=== PATIENT | male | born 1955 | race Caucasian/White ===

== ENCOUNTER 2019-05-23 13:08 | Emergency (ER) | payer BC ==
[2019-05-23 13:13] VITALS: TEMP 97.9
--- NOTE | 2019-05-23 13:29 | ED ---
Fall HPI - General Chief Complaint: Fall Stated Complaint: Fall Time Seen by Provider: 05/23/19 13:18 Source: patient, RN notes reviewed Mode of arrival: wheelchair Limitations: physical limitation - History of Present Illness Initial Comments: This a 63-year-old male presents emergency Department chief complaint of left shoulder left hip pain. Patient states that on he was standing on a tree stump and states that he fell off which is approximately 4 feet. Patient states that the pain is not improved he states his pain just below his left shoulder and pain in his left buttocks, pelvic region. Denies any bowel bladder incontinence or retention. Denies any back pain denies any hemorrhaging a loss conscious. Patient states that his lungs range of motion of his left shoulder is right-hand dominant. Patient did take Tylenol prior arrival states he does not want any further pain medication at this time. - Related Data Allergies Allergy/AdvReac Type Severity Reaction Status Date / Time No Known Allergies Allergy Verified 05/23/19 13:13 Review of Systems ROS Statement: Those systems with pertinent positive or pertinent negative responses have been documented in the HPI. ROS Other: All systems not noted in ROS Statement are negative. Past Medical History Past Medical History: Coronary Artery Disease (CAD) History of Any Multi-Drug Resistant Organisms: None Reported Past Surgical History: Hernia Repair Past Psychological History: No Psychological Hx Reported Smoking Status: Never smoker Past Alcohol Use History: None Reported Past Drug Use History: None Reported General Exam General appearance: alert, in no apparent distress Head exam: Present: atraumatic, normocephalic, normal inspection Eye exam: Present: normal appearance, PERRL, EOMI. Absent: scleral icterus, conjunctival injection, periorbital swelling ENT exam: Present: normal exam, normal oropharynx, mucous membranes moist Neck exam: Present: normal inspection, full ROM. Absent: tenderness, meningismus, lymphadenopathy Respiratory exam: Present: normal lung sounds bilaterally. Absent: respiratory distress, wheezes, rales, rhonchi, stridor, chest wall tenderness Cardiovascular Exam: Present: regular rate, normal rhythm, normal heart sounds. Absent: systolic murmur, diastolic murmur, rubs, gallop, clicks Extremities exam: Present: other (Left hip pain with range of motion neurovascular intact left leg equal pedal pulses, tenderness the lateral posterior aspect left shoulder limited range of motion secondary to pain there is no particular tenderness there is tenderness in the proximal humeral region distal humerus nontender remaining extremity exam within normal limits) Back exam: Present: full ROM. Absent: tenderness, paraspinal tenderness, vertebral tenderness Neurological exam: Present: alert, oriented X3, CN II-XII intact Skin exam: Present: warm, dry, intact, normal color. Absent: rash Course Vital Signs 05/23/19 05/23/19 13:10 15:05 Temperature 97.9 F Pulse Rate 84 68 Respiratory 20 18 Rate Blood Pressure 133/79 124/74 O2 Sat by Pulse 99 97 Oximetry Procedures - Orthopedic Splinting/Casting Injury #1 Side: left Upper Extremity Injury Location: long arm, elbow Upper Extremity Immobilizer: sling/shoulder immobilizer, posterior splint, synthetic pre-padded splint Medical Decision Making - Medical Decision Making 63-year-old male presents emergency Department chief complaint of fall, left shoulder, left hip x-rays were obtained of the pelvis and shoulder initially which I felt there may have been a fracture of the pelvis CT was obtained which shows evidence of pubic rami fracture no hip fracture. Patient updated on results and then complaint of left elbow pain x-ray shows possible chip fracture of the radial head. Patient was splinted and will follow-up with orthopedics and return parameters were discussed. Disposition Clinical Impression: Fall, Fracture of left inferior pubic ramus, Left radial head fracture Disposition: HOME SELF-CARE Condition: Stable Instructions (If sedation given, give patient instructions): Arm Fracture in Adults (ED), Pelvic Fracture (ED) Additional Instructions: Please return to the Emergency Department if symptoms worsen or any other concerns. Is patient prescribed a controlled substance at d/c from ED?: No Referrals: Moisés Louise MD [Primary Care Provider] - 1-2 days Merry Cox DO [Doctor of Osteopathic Medicine] - 1-2 days Time of Disposition: 15:23
--- NOTE | 2019-05-23 13:47 | XR ---
EXAMINATION TYPE: XR shoulder complete LT , 3 VIEWS DATE OF EXAM ORDERED: 05/23/2019 HISTORY: fall, pain, trauma. COMPARISON: None. FINDINGS: There are mild hypertrophic changes present in the left AC joint. No fracture or dislocati on is seen. IMPRESSION: 1. NO ACUTE OSSEOUS LESION. 2. MILD DEGENERATIVE CHANGE, LEFT AC JOINT.
--- NOTE | 2019-05-23 13:49 | XR ---
EXAMINATION TYPE: XR Hip LT and AP Pelvis , 3 VIEWS DATE OF EXAM ORDERED: 05/23/2019 HISTORY: fall, pain, trauma. COMPARISON: None. FINDINGS: Bony structures about the pelvis are normal. No fracture or dislocation is seen. There are phleboliths within the pelvis. Both hips are nonspherical. There are "bumps" on the femoral necks. IMPRESSION: 1. NO ACUTE OSSEOUS LESION. 2. PLEASE CORRELATE CLINICALLY FOR FEMOROACETABULAR IMPINGEMENT SYNDROME.
--- NOTE | 2019-05-23 14:21 | CT ---
EXAMINATION TYPE: CT hip LT wo con DATE OF EXAM: 05/23/2019 COMPARISON: None HISTORY: unable to bear weight post fall CT DLP: 720.2 mGycm Automated exposure control for dose reduction was used. FINDINGS: Multiple axial sections were obtained from the upper ileum to the mid shaft of the femur with no cont rast. The acetabulum is intact. There is minor acetabular spurring. Hip joint space is fairly normal. I see no definite femoral neck fracture. Proximal femur is intact. Left sacroiliac joint is intact. There is no evidence of a soft tissue mass. IMPRESSION: MILD DEGENERATIVE SPURRING AT THE HIP JOINT. NO FRACTURE SEEN.
[2019-05-23 15:06] VITALS: BP 124/74; PULSE 68; RESP 18
--- NOTE | 2019-05-23 15:07 | XR ---
EXAMINATION TYPE: XR elbow complete LT DATE OF EXAM: 05/23/2019 COMPARISON: NONE HISTORY: Elbow pain TECHNIQUE: 3 views FINDINGS: There is some spurring on the olecranon process of the ulna. There is posterior fat pad sig n. There is anterior sail sign. There is a intra-articular 8 mm chip fracture of the lateral aspect o f the radial head. Proximal ulna is intact. IMPRESSION: Radial head chip fracture. Elbow joint effusion.
[2019-05-23] MEDS ORDERED: ACET/COD 300 MG/30 MG STARTER PACK 6 TAB BTL PO STA (15:41)
== END 2019-05-23 16:07 | disposition home or self-care (01) ==
LOC: EC 13:08
DX: S32.592A Other specified fracture of left pubis, initial encounter for closed fracture (principal); S52.122A Displaced fracture of head of left radius, initial encounter for closed fracture; I25.10 Atherosclerotic heart disease of native coronary artery without angina pectoris; W14.XXXA Fall from tree, initial encounter; Y93.89 Activity, other specified
CPT/HCPCS: 29105; 73502; 99284

== ENCOUNTER → 2019-06-05 | Outpatient (CLI) | payer BC ==
--- NOTE | 2019-06-05 17:16 | CT ---
EXAMINATION TYPE: CT elbow LT wo con DATE OF EXAM: 06/05/2019 COMPARISON: Plain films 05/23/2019 HISTORY: Radial fracture. CT DLP: 204 mGycm Automated exposure control for dose reduction was used. Axial images 3 mm thick sections. Reconstructed images in orthogonal planes. FINDINGS: There is a radial head fracture with intra-articular extension. No dislocation is evident. Significan t joint effusion is not appreciated at this time. No additional fractures are evident. IMPRESSION: RADIAL HEAD FRACTURE WITH INTRA-ARTICULAR EXTENSION. NO FREE FRAGMENTS ARE IDENTIFIED.
== END ==
LOC: RADCTMAIN 12:24
PROVIDERS: ATTEND Orthopaedic Surgery Orthopaedic Surgery of the Spine
DX: S52.125A Nondisplaced fracture of head of left radius, initial encounter for closed fracture (principal); M54.5 Low back pain; X58.XXXA Exposure to other specified factors, initial encounter

== ENCOUNTER → 2019-06-26 | Outpatient (CLI) | payer BC | END | disposition home or self-care (01) | LOC: LABWHC1 13:10 | PROVIDERS: ATTEND Orthopaedic Surgery | DX: E55.9 Vitamin D deficiency, unspecified (principal); M25.522 Pain in left elbow | CPT/HCPCS: 36415; 82306 ==

== ENCOUNTER → 2024-08-25 | Outpatient (CLI) | payer MEDICARE | END | disposition home or self-care (01) | LOC: RADMRIMAIN 07:38 | PROVIDERS: ATTEND Urology | DX: Z53.9 Procedure and treatment not carried out, unspecified reason (principal); R97.20 Elevated prostate specific antigen [PSA] ==